=== PATIENT | female | born 1980 | race Caucasian/White ===

== ENCOUNTER 2016-12-28 12:40 | Inpatient (IN) | payer MEDICAID ==
[~2016-12-28] VITALS: Ht 160 cm; Wt 58.1 kg
[2016-12-28 13:09] VITALS: BP 115/67; PULSE 67; RESP 18; Ht 160 cm; Wt 58.1 kg
--- NOTE | 2016-12-28 13:51 | NSTRPT ---
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 TYLER 13.1, cephalic FBS 81. Strip reviewed by Dr. Stern perinatologist. Recomendation is for pt to have a ENVIRONMENTAL ENGINEERING MANAGER. Report given to Dr. Jaquez, agrees with recomendation. Pt sent to L_D for ENVIRONMENTAL ENGINEERING MANAGER. Explained to Pt plan of care . Pt states understanding. Follow up NST appointment given. Kick count instructions reviewed.1 215- pt to L_D as ordered. Electronically Signed By E-Signature: with User ID: [id number], Addendum/Amendment: Patient for ENVIRONMENTAL ENGINEERING MANAGER.Suspious NST with probable decels.
[2016-12-28] MEDS ORDERED: DEXTROSE 5%-LR 1,000 ML IV SCH (14:12)
--- NOTE | 2016-12-28 14:23 | RADRPT ---
PROCEDURE: US biophysical profile. CLINICAL INDICATION: cardiac deceleration. TECHNIQUE: Multiple sonographic images of the uterus were obtained. The images were revi ewed on a PACS workstation. COMPARISON: No prior studies are available for comparison. FINDINGS: There is a single live intrauterine gestation. heart rate is 152 beats per minute. The position is cephalic. The placenta is right lateral grade II with no abruption or previa. The TYLER is 14.0 cm. (Normal = 5-20 cm.) Breathing Movement: 2 Gross Body Movement: 2 Tone: 2 Qualitative Amniotic Fluid Volume: 2 TOTAL: 8 IMPRESSION: 1. The biophysical score is 8/8. RPTAT: QQ .Gordon Segovia MD, MD Date Time Electronically viewed and signed by .Gordon Segovia MD, on 12/28/2016 14:22 .R/
[2016-12-28] MEDS: LACTATED RINGER'S 1,000 ML IV SCH ×2 (14:32→18:04)
[2016-12-28] MEDS ORDERED: INSU100V3 IJ (19:51)
[2016-12-28] MEDS ORDERED: METF500T4 PO (19:51)
--- NOTE | 2016-12-28 20:20 | HP ---
Date/Time of Note Date/Time of Note DATE: 12/28/16 TIME: 20:12 OB - History Hx of Present Free Text/Dictation 36 yo P3 @ 35 wks, sent from NST for variable decels for oxytocin stress test; she has been courtney every 2-3 min since being observed and has not had further variables, but she does not have many accels. BPP was 05/01 patient is GDMA2 on glucophage in the am and insulin in the pm Chief Complaint: non-reactive NST Last Menstrual Period: Apr 22, 2016 Estimated Due Date: January 27, 2017 : 4 Para: 3 Care: Good Care Obstetrical Complications: Gestational Diabetes Past Family/Social History * Past Medical, Surgical, Family and Obstetric Histories reviewed from chart. Blood Type: A+ Rubella: immune RPR/VDRL: Negative GBS Status: Unknown HBsAG: Negative OB Admission Exam Vital Signs Vital Signs Vital Signs Date Time Temp Pulse Resp B/P Pulse Ox O2 Delivery O2 Flow Rate FiO2 12/28/16 13:09 98.0 67 18 115/67 Physical Exam HEENT: WNL Abdomen: WNL Cervical Dilatation: 1cm Effacement: 50% Station: -2 Membranes: Intact Accelerations: No Accelerations Decelerations: No Decelerations Varibility: Moderate Contractions on Admission: < 5 Minutes Apart Intensity: Moderate Last 72 hourBlood Glucose Bedside Glucose - 72 Hours Test 12/28/16 16:21 12/28/16 18:35 Bedside Glucose 77mg/dL (70-220) 154mg/dL (70-220) OB Assessment/Plan Other Assessment: patient was sent for observation; while she has no further decels, her FHT is not reactive she is GDMA2, and having ctx, but does not appear to be in active labor Other plan: will admit to antepartum observe FHT overnight; if not in labor, consider d/c home tomorrow BPP was 05/01 patient to have ADA diet, and her diabetic meds ordered DEONTE LOYD MD Dec 28, 2016 20:20
[2016-12-28] MEDS ORDERED: GLUCOSE GEL 15 GRAM TUBE PO PRN ×2 (21:00)
[2016-12-28] MEDS ORDERED: GLUCAGON 1 MG INJ IM PRN (21:00)
[2016-12-28] MEDS ORDERED: GLUCOSE GEL 15 GRAM TUBE BUCCAL PRN (21:00)
[2016-12-28] MEDS ORDERED: DEXTROSE 50% 50 ML SYRINGE IV PRN ×2 (21:00)
--- NOTE | 2016-12-28 21:30 | TRIAGE ---
OB Triage Datetime Report Generated by CPN: 12/28/2016 21:29 Datetime: 12/28/2016 20:48 Stage of : OB Triage Labor Evaluation Frequency: 2-7 Monitor Mode: External Duration (sec)2399: 70-160 Quality: Mild Pattern: Normal: <= 5 Contractions in 10 Minutes Resting Tone Bemiss: Relaxed Heart Rate FHR Baseline Rate: 140 Monitor Mode: External US Variability: Moderate 6-25 bpm Accelerations: 15X15 Decelerations: None Category: Category I Datetime: 12/28/2016 20:45 Stage of : OB Triage Datetime: 12/28/2016 20:00 Stage of : OB Triage Labor Evaluation Frequency: 2-8 Monitor Mode: External Duration (sec)2399: 70-140 Quality: Mild Pattern: Normal: <= 5 Contractions in 10 Minutes Resting Tone Bemiss: Relaxed Heart Rate FHR Baseline Rate: 140 Monitor Mode: External US Variability: Moderate 6-25 bpm Accelerations: 15X15 Decelerations: None Category: Category I Comments: STRIP REVIEW FROM Datetime: 12/28/2016 19:44 Temperature Route: Oral Pain Assessment Pain Scale: 4 Pain Presence: Intermittent Pain Type: Cramping Pain Location: Abdomen Pain Goal: 4 Pain Relief Measures: Comfort Measures Datetime: 12/28/2016 19:40 Vaginal Exam Dilatation (cms): 1.5 Effacement (%): 60 Station: -3 Exam By: DGS RN Vaginal Bleeding: Normal Show Cervix, Consistency: Moderate Cervix, Position: Posterior Datetime: 12/28/2016 18:32 Labor Evaluation Frequency: 4-6 Monitor Mode: External Duration (sec)2399: 50-70 Quality: Mild Pattern: Normal: <= 5 Contractions in 10 Minutes Resting Tone Bemiss: Relaxed Heart Rate FHR Baseline Rate: 140 Monitor Mode: External US FHR Baseline Changes: No Baseline Change Variability: Moderate 6-25 bpm Accelerations: 15X15 Decelerations: None Category: Category I Pain Presence: None/Denies Datetime: 12/28/2016 18:31 Bedside Blood Glucose: 154 Datetime: 12/28/2016 18:03 Labor Evaluation Frequency: 5-6 Monitor Mode: External Duration (sec)2399: 60-80 Quality: Mild Pattern: Normal: <= 5 Contractions in 10 Minutes Resting Tone Bemiss: Relaxed Heart Rate FHR Baseline Rate: 140 Monitor Mode: External US FHR Baseline Changes: No Baseline Change Variability: Moderate 6-25 bpm Accelerations: 15X15 Decelerations: None Category: Category I Pain Assessment Pain Scale: 3 Pain Presence: Intermittent Pain Type: Cramping Pain Location: Abdomen Pain Relief Measures: Comfort Measures Datetime: 12/28/2016 17:05 Labor Evaluation Frequency: 3-5 Monitor Mode: External Duration (sec)2399: 50-100 Quality: Mild Pattern: Normal: <= 5 Contractions in 10 Minutes Resting Tone Bemiss: Relaxed Heart Rate FHR Baseline Rate: 150 Monitor Mode: External US FHR Baseline Changes: No Baseline Change Variability: Moderate 6-25 bpm Accelerations: 15X15 Decelerations: None Category: Category I Pain Assessment Pain Scale: 2 Pain Presence: Intermittent Pain Type: Cramping Pain Location: Abdomen Pain Relief Measures: Comfort Measures Datetime: 12/28/2016 16:24 Bedside Blood Glucose: 77 Datetime: 12/28/2016 16:05 Labor Evaluation Frequency: 3-5 Monitor Mode: External Duration (sec)2399: 50-80 Quality: Mild Pattern: Normal: <= 5 Contractions in 10 Minutes Resting Tone Bemiss: Relaxed Monitor Mode: External US FHR Baseline Changes: No Baseline Change Variability: Moderate 6-25 bpm Accelerations: 15X15 Decelerations: None Category: Category I Pain Assessment Pain Scale: 4 Pain Presence: Intermittent Pain Type: Cramping Pain Location: Abdomen Pain Relief Measures: Comfort Measures Datetime: 12/28/2016 15:12 Assessment Type: Admission Assessment Vaginal Bleeding: None Maternal Assessment Level of Consciousness: Fully Conscious DTR's/Clonus: DTRs 2+; No Clonus Headache: Denies Blurred Vision: No Respiratory Effort: Unlabored; Regular Rhythm; Equal Expansion Breath Sounds, Left: Clear and Equal Breath Sounds, Right: Clear and Equal Nausea/Vomiting: Denies RUQ Epigastric Pain: Denies Lower Extremities Edema: None Degree: None Upper Extremities Edema: None Degree: None Facial Edema: None Fall Risk Assessment History of Falling: (0) No Secondary Diagnosis: (0) No Ambulatory Aid: (0) Bedrest/Nurse Assist IV Therapy: (0) No Gait: (0) Normal/Bedrest/Immobile Mental Status: (0) Oriented to Own Ability Fall Score: 0 Fall Risk Score Definition: No Risk: No action required Labor Evaluation Frequency: 3-4 Duration (sec)2399: 60-100 Quality: Mild Pattern: Normal: <= 5 Contractions in 10 Minutes Resting Tone Bemiss: Relaxed Heart Rate FHR Baseline Rate: 150 Variability: Moderate 6-25 bpm Accelerations: 10X10 Decelerations: Variable Category: Category II Pain Assessment Pain Scale: 4 Pain Presence: Intermittent Pain Type: Cramping Pain Location: Abdomen Membrane Status: Intact Datetime: 12/28/2016 14:38 Interventions: Side to Side; Oxygen Applied; IV Bolus; Provider Notified Accelerations: 15X15 Decelerations: Variable Category: Category II Datetime: 12/28/2016 14:33 Labor Evaluation Frequency: 6 Monitor Mode: External Duration (sec)2399: 60 Quality: Mild Pattern: Normal: <= 5 Contractions in 10 Minutes Resting Tone Bemiss: Relaxed Heart Rate FHR Baseline Rate: 145 FHR Baseline Changes: No Baseline Change Variability: Moderate 6-25 bpm Accelerations: 15X15 Decelerations: None Category: Category I Membrane Status: Intact Datetime: 12/28/2016 14:14 Headache: Denies Blurred Vision: No RUQ Epigastric Pain: Denies Facial Edema: None Labor Evaluation Frequency: 4 Monitor Mode: External Duration (sec)2399: 50 Quality: Mild Pattern: Normal: <= 5 Contractions in 10 Minutes Resting Tone Bemiss: Relaxed Heart Rate FHR Baseline Rate: 150 Variability: Moderate 6-25 bpm Accelerations: 15X15 Decelerations: Variable Category: Category II Membrane Status: Intact Datetime: 12/28/2016 13:04 Stage of : OB Triage Maternal Assessment Level of Consciousness: Fully Conscious DTR's/Clonus: DTRs 2+; No Clonus Headache: Denies Blurred Vision: No Respiratory Effort: Unlabored; Regular Rhythm; Equal Expansion Breath Sounds, Left: Clear and Equal Breath Sounds, Right: Clear and Equal Nausea/Vomiting: Denies RUQ Epigastric Pain: Denies Lower Extremities Edema: None Degree: None Upper Extremities Edema: None Degree: None Facial Edema: None Temperature Route: Axillary Fall Risk Assessment History of Falling: (0) No Secondary Diagnosis: (0) No Ambulatory Aid: (0) Bedrest/Nurse Assist IV Therapy: (0) No Gait: (0) Normal/Bedrest/Immobile Mental Status: (0) Oriented to Own Ability Fall Score: 0 Fall Risk Score Definition: No Risk: No action required Labor Evaluation Frequency: occ (Annotations: per pt) Monitor Mode: External Heart Rate FHR Baseline Rate: 140 Monitor Mode: External US Pain Presence: None/Denies Datetime: 12/28/2016 12:59 Time of Arrival: 12/28/2016 12:59 EGA: 35.4 Arrived By: Ambulatory Arrived From: Office Chief Complaint: sent from NST for non reactive strip Movement: Present Contractions: Irregular Time Contractions Began: 12/28/2016 11:00 Contractions: occ Rupture of Membranes: Denies Vaginal Bleeding: None Vaginal Discharge: Denies Recent Sexual Intercouse: Denies Abdominal Trauma: Not Applicable Patient Complaints: Other Time Provider Notified: 12/28/2016 13:14 Initial Plan: ffm/ bpp Datetime: 12/28/2016 11:20 Vaginal Exam Dilatation (cms): 1.0 Effacement (%): 50 Station: -2 Exam By: Sekou MONET RN
[2016-12-28] MEDS: INSULIN ASPART [NOVOLOG] 3 ML PEN SC SCH (23:38)
[2016-12-29] MEDS: ACCU-CHEK XX SCH ×4 (08:00→22:48)
[2016-12-29] MEDS: metFORMIN 850 MG TAB GTB SCH (09:05)
[2016-12-29] MEDS: LACTATED RINGER'S 1,000 ML IV SCH ×2 (10:49→19:24)
--- NOTE | 2016-12-29 11:26 | RADRPT ---
PROCEDURE: Limited obstetric ultrasound CLINICAL INDICATION: Pain , labor TECHNIQUE: Multiple transverse and longitudinal grayscale images of the pelvis were obtained gonzalez sabdominally and transvaginally.. COMPARISON: 12/28/2016 FINDINGS: The cervix has a length of 3.4 cm. There is a trace amount of fluid within the cervix. There is a single viable intrauterine gestation. Cardiac activity is present with 156 beats per min cammy. There is a vertex presentation. The placenta is posterior. There is no evidence for an abruption or placenta previa. RPTAT: AA IMPRESSION: Cervix length measures 3.4 cm. .Ralph Kumar MD, MD Date Time Electronically viewed and signed by .Ralph Kumar MD, on 12/29/2016 11:25 .S/
--- NOTE | 2016-12-29 19:26 | RADRPT ---
PROCEDURE: Obstetrical ultrasound. CLINICAL INDICATION: , evaluation. Pelvic pain. labor TECHNIQUE: Transabdominal sonographic images of the pelvis are obtained. COMPARISON: 12/29/2016, 12/28/2016 FINDINGS: Single intrauterine gestation. There is a cephalic presentation. Measurements were made in order to determine age. The results are as follows: BPD = 8.81 cm HC = 31.23 cm AC = 32.11 cm FL = 6.69 cm Heart rate = 148 beats per minute The placenta is posterior. There is no evidence for an abruption or placenta previa. Ovaries are not visualized. IMPRESSION: Single intrauterine gestation of approximately 35 weeks 2 days by ultrasound criteria. [place] estimated weight = 2681 g; 42 percentile for gestational age of 35 weeks 5 days. RPTAT: AADD .Nirav Horowitz MD, MD Date Time Electronically viewed and signed by .Nirav Horowitz MD, on 12/29/2016 19:26 .B/
[2016-12-29] MEDS: INSULIN ASPART [NOVOLOG] 3 ML PEN SC SCH (21:00)
[2016-12-30] MEDS: LACTATED RINGER'S 1,000 ML IV SCH ×3 (03:10→14:24)
[2016-12-30] MEDS: ACCU-CHEK XX SCH ×3 (06:20→14:00)
[2016-12-30] MEDS: metFORMIN 850 MG TAB GTB SCH (08:42)
--- NOTE | 2016-12-30 12:49 | QN ---
Documentation Comment This is a late entry of patients visit on December 29, she is a 34 years old female @35 weeks and 6/7 days GDM A2 was admitted due to heart deceleration while she was being monitored at NST unit she was sent to antepartum unit for further observation ,since admission there has been some occasional short deceleration with quick recovery . Today reviewing the heart tracing there was 2-2-1/2 minutes deceleration with recovery to base line, perinatologist notified. Plan of discharge pending perinatologist recommendation BETH OLEARY MD Dec 30, 2016 12:40
[2016-12-30] MEDS ORDERED: METF-480 PO (14:25)
--- NOTE | 2016-12-30 14:57 | DS ---
Date/Time of Note Date/Time of Note DATE: 12/30/16 TIME: 14:50 Discharge Summary Admission/Discharge Info Admit Date/Time Dec 28, 2016 at 20:48 Discharge Date/Time December 30, [id number] [id number] Final Diagnosis 35 weeks 6 days complicated with GDM heart deceleration prior to admission at the NST unit heart rate has been within normal since the admission only one occasion of 2-1/5 to 3 minutes recovered to baseline with good acceleration for gestational age recommended by the perinatologist discharged home follow-up and NST clinic 2 times per week patient's first appointment will be on January 01 Patient Condition: Good Consults Perinatologist Procedures Observation Hx of Present Illness 35 weeks 6 days complicated with gestational diabetes insulin- dependent Hospital Course Satisfactory Home Meds Reported Medications Metformin* (Glucophage*) 850 Mg Tablet, 850 MG PO WITH BREAKFAST, #30 TAB 12/30/16 Metformin* (Glucophage*) 850 Mg Tablet, 850 MG PO WITH BREAKFAST, #30 TAB 12/30/16 Insulin Regular, Human (Humulin R) 100 Unit/1 Ml Vial, 6 UNIT IJ QHS, VIAL 12/28/16 Discontinued Reported Medications Metformin* (Glucophage*) 500 Mg Tab, 500 MG PO WITH BREAKFAST, #30 TAB 12/28/16 Follow-up Plan Patient will continue insulin injections as before, a prescription of metformin 850mg given to the patient recommended appointment on January 01 at NST clinic Pending Labs Laboratory Tests Test 12/29/16 15:28 12/29/16 22:47 12/30/16 06:20 12/30/16 08:40 Bedside Glucose 119mg/dL (70-220) 104mg/dL (70-220) 69mg/dL (70-220) 133mg/dL (70-220) Test 12/30/16 10:41 Bedside Glucose 115mg/dL (70-220) BETH OLEARY MD Dec 30, 2016 14:57
[2016-12-31] MEDS ORDERED: NPH,100V SQ (17:50)
== END 2016-12-30 15:05 | disposition home or self-care (01) | DRG 781 ==
LOC: OBT 12:40 → L-D 12:41 → OBG 20:48 → OBT 20:48 → OBG 21:12
PROVIDERS: ADMIT Obstetrics & Gynecology; ATTEND Obstetrics & Gynecology
DX: O24.419 Gestational diabetes mellitus in pregnancy, unspecified control (principal); O09.513 Supervision of elderly primigravida, third trimester; Z3A.35 35 weeks gestation of pregnancy
CPT/HCPCS: 76816; 76817; 76818; 82962; 96360; 96361; G0463; J1815; J7120; J7121

== ENCOUNTER 2016-12-31 17:30 | Inpatient (IN) | payer MEDICAID ==
[~2016-12-31] VITALS: Ht 160 cm; Wt 58.6 kg
[~2016-12-31 17:30] MED LIST: INSU100V3 IJ; METF-480 PO
[2016-12-31] MEDS ORDERED: LACTATED RINGER'S 1,000 ML IV SCH (17:41)
[2016-12-31] MEDS ORDERED: DEXTROSE 5%-LR 1,000 ML IV SCH (17:41)
[2016-12-31 17:45] VITALS: Ht 160 cm; Wt 58.6 kg
[2016-12-31 17:46] VITALS: BP 125/83; PULSE 67; RESP 16
[2016-12-31] MEDS ORDERED: NPH,100V SQ (17:50)
[2016-12-31] MEDS ORDERED: OXYTOCIN 30 UNITS/LR 500 ML IV PRN (18:00)
[2016-12-31] MEDS ORDERED: BUTORPHANOL 2 MG INJ IV PRN (18:00)
[2016-12-31] MEDS ORDERED: MISOPROSTOL 200 MCG TAB PR PRN (18:00)
[2016-12-31] MEDS ORDERED: CARBOPROST 250 MCG INJ IM PRN (18:00)
[2016-12-31] MEDS ORDERED: AMPICILLIN 2 GM/NS (PMX) 100 ML IV ONE (18:00)
[2016-12-31] MEDS ORDERED: METHYLERGONOVINE 0.2 MG INJ IM PRN (18:00)
[2016-12-31] MEDS ORDERED: LIDOCAINE 1% (MPF) 30 ML INJ INJ PRN (18:00)
[2016-12-31] MEDS ORDERED: OXYTOCIN 30 UNITS/LR 500 ML IV SCH ×2 (18:00)
[2016-12-31] MEDS ORDERED: IBUPROFEN 600 MG TAB PO PRN (18:00)
[2016-12-31 18:05] LABS: ADD SCAN DIFF NO
[2016-12-31 18:08] LABS: BASOPHILS % 0.2 % (0.0-2.0); EOSINOPHILS # 0.1 10^3/ul (0.0-0.5); EOSINOPHILS % 1.6 % (0.0-7.0); HEMATOCRIT 37.3 % (37.0-47.0); HEMOGLOBIN 12.5 g/dl (12.0-16.0); LYMPHOCYTES % 23.9 % (15.0-51.0); MEAN CORPUSCULAR HEMOGLOBIN 32.2 pg (29.0-33.0); MEAN CORPUSCULAR HGB CONC 33.5 g/dl (32.0-37.0); MEAN CORPUSCULAR VOLUME 96.1 fl (82.0-101.0); MEAN PLATELET VOLUME 11.3 fl (7.4-10.4); MONOCYTE # 0.6 10^3/ul (0.3-0.9); NEUTROPHIL # 5.5 10^3/ul (1.6-7.5); NEUTROPHILS % 66.7 % (39.0-77.0); PLATELET COUNT 197 10^3/UL (140-415); RED BLOOD COUNT 3.88 10^6/ul (4.20-5.40); RED CELL DISTRIBUTION WIDTH 11.6 % (11.5-14.5); WHITE BLOOD COUNT 8.2 10^3/ul (4.8-10.8)
[2016-12-31] MEDS ORDERED: AMPICILLIN 2 GM/NS (PMX) 100 ML ONE (18:08)
[2016-12-31 18:15] LABS: INR 0.91; PARTIAL THROMBOPLASTIN TIME 26.8 Sec (25.0-35.0); PROTIME 12.2 Sec (12.2-14.2)
[2016-12-31] MEDS: LACTATED RINGER'S 1,000 ML IV SCH (18:17)
[2016-12-31] MEDS ORDERED: LACTATED RINGER'S 1,000 ML IV PRN (20:00)
[2016-12-31] MEDS: AMPICILLIN 1 GM/NS (PMX) 50 ML IV SCH (21:48)
[2017-01-01] MEDS: LACTATED RINGER'S 1,000 ML IV SCH (02:04)
[2017-01-01] MEDS: AMPICILLIN 1 GM/NS (PMX) 50 ML IV SCH (02:04)
--- NOTE | 2017-01-01 03:49 | HP ---
Date/Time of Note Date/Time of Note DATE: 01/01/17 TIME: 03:40 OB - History Hx of Present Free Text/Dictation Laborist Note. with IUP at 36 weeks who was admitted for PPROM. she was treated with ampicillin and allowed to progress in labor naturally. she progressed to 10 cm and then s/p . Care: Good Care Ultrasounds: Normal mid trimester US Obstetrical Complications: Other (PPROM) Medical Complications: None Past Family/Social History * Past Medical, Surgical, Family and Obstetric Histories reviewed from chart. HBsAG: Unknown OB Admission Exam Vital Signs Vital Signs Vital Signs Date Time Temp Pulse Resp B/P Pulse Ox O2 Delivery O2 Flow Rate FiO2 12/31/16 17:46 98.4 67 16 125/83 Physical Exam HEENT: WNL Heart: Rhythm Normal Lungs: Clear, Equal Abdomen: WNL Extremities: Normal Reflexes: Normal Cervical Dilatation: 10cm Effacement: 100% Station: +3 Membranes: Ruptured Amniotic Fluid: Thin Meconium Last 72 hourBlood Glucose Bedside Glucose - 72 Hours Test 12/31/16 21:39 01/01/17 01:30 Bedside Glucose 81mg/dL (70-220) 91mg/dL (70-220) Last 72 hours Lab Results CBC & BMP 12/31/16 17:35 OB Assessment/Plan Reason for admission: other (PPROM at 36 weeks) Other Assessment: GDM, on insulin and Metformin Plan: Expectant Management EBONIE HANEY MD Jan 01, 2017 03:49
--- NOTE | 2017-01-01 03:53 | LDN ---
Date/Time of Note Date/Time of Note DATE: 01/01/17 TIME: 03:49 Delivery Summary with IUP at 36 weeks with PPROM progressed to 10 cm. s/p of viable female infant. Placenta Delivered: Spontaneously Meconium: Light Episiotomy: No Perineal laceration: 1 Laceration repair: 3-0 Vicryl and local lidocaine was used to repair the first degree perineal laceration. Anesthesia type: Local Estimated blood loss: 300 Sponge & Needle done & correct: Yes All needle counts correct: Yes Any foreign bodies felt in the: No Problems: Delivery Information Sex Sex: female Apgars 1 Minute: 8 5 Minute: 9 Suctioning Nose & mouth suctioned at monica: No Delee suction performed: No Umbilical Cord Umbilical cord with: 3 Vessels Cord presentations: nuchal cord Nuchal cord present X: 1 Cord Blood was obtained: Yes Mother & Baby Disposition Disposition delayed cord clamping for 2 minutes done Mom & Baby to Maternity; Good: Yes EBONIE HANEY MD Jan 01, 2017 03:53
[2017-01-01] MEDS ORDERED: DIBUCAINE 1% 30 GM OINT PR PRN (04:00)
[2017-01-01] MEDS ORDERED: MISOPROSTOL 200 MCG TAB PR PRN (04:00)
[2017-01-01] MEDS ORDERED: DIPHENHYDRAMINE 50 MG INJ IV PRN (04:00)
[2017-01-01] MEDS ORDERED: WITCH HAZEL/GLYCERIN PAD PR PRN (04:00)
[2017-01-01] MEDS ORDERED: ACETAMINOPHEN/CODEINE #3 TAB PO PRN ×2 (04:00)
[2017-01-01] MEDS ORDERED: LANOLIN 7 GM TUBE TOP PRN (04:00)
[2017-01-01] MEDS ORDERED: CARBOPROST 250 MCG INJ IM PRN (04:00)
[2017-01-01] MEDS ORDERED: MAGNESIUM HYDROXIDE 30ML CUP PO PRN (04:00)
[2017-01-01] MEDS ORDERED: DIPHENHYDRAMINE 25 MG CAP PO PRN (04:00)
[2017-01-01] MEDS ORDERED: BENZOCAINE 20% 56 ML SPRAY TOP PRN (04:00)
[2017-01-01] MEDS ORDERED: NA PHOSPHATE/BIPHOS 133 ML ENEMA PR PRN (04:00)
[2017-01-01] MEDS ORDERED: OXYTOCIN 30 UNITS/LR 500 ML IV PRN (04:00)
[2017-01-01] MEDS ORDERED: ONDANSETRON 4 MG TAB PO PRN (04:00)
[2017-01-01] MEDS ORDERED: SENNA/DOCUSATE NA (8.6MG/50MG) TAB PO PRN (04:00)
[2017-01-01] MEDS ORDERED: ONDANSETRON 4 MG INJ IV PRN (04:00)
[2017-01-01 05:00] VITALS: BP 125/76; PULSE 98; RESP 19
[2017-01-01] MEDS: LACTATED RINGER'S 1,000 ML IV* SCH ×2 (05:39→09:21)
[2017-01-01] MEDS: IBUPROFEN 600 MG TAB PO SCH ×3 (05:45→18:23)
[2017-01-01 06:00] VITALS: BP 123/83; PULSE 65; RESP 19
[2017-01-01 08:00] VITALS: BP 135/70; PULSE 56; RESP 18
[2017-01-01] MEDS: ACCU-CHEK XX SCH ×4 (08:16→20:05)
[2017-01-01] MEDS ORDERED: DEXTROSE 50% 50 ML SYRINGE IV PRN ×2 (09:30)
[2017-01-01] MEDS ORDERED: GLUCOSE GEL 15 GRAM TUBE PO PRN ×2 (09:30)
[2017-01-01] MEDS ORDERED: GLUCOSE GEL 15 GRAM TUBE BUCCAL PRN (09:30)
[2017-01-01] MEDS ORDERED: GLUCAGON 1 MG INJ IM PRN (09:30)
[2017-01-01] MEDS: metFORMIN 500 MG TAB PO SCH ×2 (09:51→18:29)
[2017-01-01] MEDS: SENNA/DOCUSATE NA (8.6MG/50MG) TAB PO SCH ×2 (09:51→20:19)
[2017-01-01 16:00] VITALS: BP 115/76; PULSE 59; RESP 18
[2017-01-01 20:00] VITALS: BP 128/80; PULSE 60; RESP 18
--- NOTE | 2017-01-01 21:39 | NSTRPT ---
NST Information Datetime Report Generated by CPN: 01/01/2017 21:39 Datetime: 12/28/2016 09:03 Test Evaluation Comments: PT TO U/S. TYLER 13.1, cephalic, BPP 8/8 FBS 81. Strip reviewed by Dr. Stern perinatologist. SVE ordered by . BERTRAM done at 1120, pt is /2. Recomendation is for pt to have a COMMERCIAL ASSISTANT. Report given to Dr. Jaquez, agrees with recomendation . Pt sent to L_D for COMMERCIAL ASSISTANT. Explained to Pt plan of care. Pt states understanding. Follow up NST appoi ntment given. Kick count instructions reviewed.1215- pt to L_D as ordered. Datetime: 12/18/2016 09:12 Electronically Signed By E-Signature: with User ID: [id number]
[2017-01-01 22:00] VITALS: BP 130/82; PULSE 72; RESP 18
[2017-01-02 04:05] VITALS: BP 100/60
[2017-01-02] MEDS: ACCU-CHEK XX SCH ×3 (07:45→15:00)
[2017-01-02 08:00] VITALS: BP 117/81; PULSE 58; RESP 16
[2017-01-02] MEDS: IBUPROFEN 600 MG TAB PO SCH ×4 (08:00→18:00)
[2017-01-02] MEDS: metFORMIN 500 MG TAB PO SCH ×2 (09:04→18:42)
[2017-01-02] MEDS: SENNA/DOCUSATE NA (8.6MG/50MG) TAB PO SCH ×2 (09:04→21:00)
[2017-01-02 09:57] LABS: ADD SCAN DIFF NO
[2017-01-02] MEDS: LACTATED RINGER'S 1,000 ML IV* SCH ×2 (10:00→10:01)
--- NOTE | 2017-01-02 10:00 | PN ---
Date/Time of Note Date/Time of Note DATE: 01/02/17 TIME: 09:59 OB Subjective Subjective Subjective Laboratory Tests Test 01/01/17 10:28 01/01/17 14:26 01/01/17 20:23 01/02/17 07:53 Bedside Glucose 108mg/dL 108mg/dL 125mg/dL 73mg/dL Current Medications Medications (Trade) Dose Ordered Sig/Jessica Route PRN Reason Start Time Stop Time Status Last Admin Dose Admin Lactated Ringer's 1,000 ml @ 125 mls/hr Q8H IV 12/31/16 17:41 01/01/17 03:39 DC 01/01/17 02:04 Lactated Ringer's 1,000 ml @ 125 mls/hr Q8H IV 12/31/16 17:41 01/01/17 03:39 DC 12/31/16 17:41 Dextrose/Lactated Ringer's 1,000 ml @ 125 mls/hr Q8H IV 12/31/16 17:41 01/01/17 03:40 DC Ampicillin 100 ml @ 100 mls/hr ONCE ONCE IV 12/31/16 18:00 12/31/16 18:59 DC 12/31/16 18:17 Ampicillin (Ampicillin 1 Gm/ NS (Pmx)) 50 ml @ 100 mls/hr Q4H IV 12/31/16 22:00 01/01/17 03:40 DC 01/01/17 02:04 Butorphanol Tartrate (Stadol) 2 mg Q2H PRN IV PAIN 12/31/16 18:00 01/01/17 03:40 DC 12/31/16 23:56 Lidocaine 30 ml 30 ml ONCE PRN INJ EPISIOTOMY/TEARING 12/31/16 18:00 01/01/17 03:40 DC Oxytocin/Lactated Ringer's 500 ml @ 125 mls/hr ONCE -MAY REPEAT X1 IV 12/31/16 18:00 01/01/17 03:40 DC 01/01/17 03:38 Oxytocin/Lactated Ringer's 500 ml @ 125 mls/hr ONCE IV 12/31/16 18:00 01/01/17 03:40 DC 01/01/17 03:19 Ibuprofen 600 mg 600 mg ONCE PRN PO Mild Pain (Pain Score 1-3) 12/31/16 18:00 01/01/17 03:40 DC Lactated Ringer's 1,000 ml @ 2,000 mls/hr Q30M PRN IV PRE-EPIDURAL BOLUS 12/31/16 20:00 01/01/17 03:40 DC Oxytocin/Lactated Ringer's 500 ml @ 0 mls/hr ONCE PRN IV For Hemorrhage Management 12/31/16 18:00 01/01/17 03:40 DC Methylergonovine Maleate (Methergine) 0.2 mg ONCE PRN IM VAGINAL BLEEDING 12/31/16 18:00 01/01/17 03:40 DC Carboprost Tromethamine (Hemabate) 250 mcg ONCE PRN IM VAGINAL BLEEDING 12/31/16 18:00 01/01/17 03:40 DC Misoprostol 1000 mcg 1,000 mcg ONCE PRN MI VAGINAL BLEEDING 12/31/16 18:00 01/01/17 03:40 DC Ampicillin 100 ml @ ud STK-MED ONCE .ROUTE 12/31/16 18:08 12/31/16 18:09 DC Lactated Ringer's (Lr) 1,000 ml @ 125 mls/hr Q8H IV* 01/01/17 03:33 01/01/17 09:21 Ibuprofen (Motrin) 600 mg Q6 PO 01/01/17 06:00 01/01/17 18:23 Acetaminophen/ Codeine Phosphate (Tylenol No.3) 1 tab Q4H PRN PO PAIN LEVEL 1-5 01/01/17 04:00 Acetaminophen/ Codeine Phosphate (Tylenol No.3) 2 tab Q4H PRN PO PAIN LEVEL 6-10 01/01/17 04:00 Ondansetron HCl (Zofran Inj) 4 mg Q6H PRN IV NAUSEA AND/OR VOMITING 01/01/17 04:00 Ondansetron HCl (Zofran Tab) 4 mg Q6H PRN PO NAUSEA AND/OR VOMITING 01/01/17 04:00 Diphenhydramine HCl (Benadryl) 25 mg Q6H PRN PO PRURITUS 01/01/17 04:00 Diphenhydramine HCl (Benadryl) 25 mg Q6H PRN IV PRURITUS 01/01/17 04:00 Senna/Docusate Sodium (Senokot-S) 1 tab BID PO 01/01/17 09:00 01/02/17 09:04 Senna/Docusate Sodium (Senokot-S) 1 tab BID PRN PO CONSTIPATION 01/01/17 04:00 Magnesium Hydroxide (Milk Of Mag) 30 ml Q12H PRN PO CONSTIPATION 01/01/17 04:00 Sodium Biphosphate/ Sodium Phosphate (Fleet Enema) 133 ml DAILY PRN MI CONSTIPATION 01/01/17 04:00 Witch Sherita/ Glycerin (Tucks Pads) 1 pad BEDSIDE MEDICATION PRN MI HEMORRHOID/EPISIOTMY PAIN 01/01/17 04:00 01/01/17 05:45 Benzocaine (Dermoplast [place]) 1 spray BEDSIDE MEDICATION PRN TOP HEMORRHOID/EPISIOTMY PAIN 01/01/17 04:00 01/01/17 05:46 Dibucaine (Nupercainal) 1 applic BEDSIDE MEDICATION PRN MI HEMORRHOID/EPISIOTMY PAIN 01/01/17 04:00 Lanolin ([id number]) 1 applic BEDSIDE MEDICATION PRN TOP BEDSIDE FOR MOHINI TO NIPPLES 01/01/17 04:00 01/01/17 05:46 Measles/Mumps/ Rubella Vaccine Live (Mmr Ii Vaccine) 0.5 ml ONCE ONCE SC* 01/03/17 09:00 01/03/17 09:01 Diphtheria/ Tetanus/Acell Pertussis (Adacel) 0.5 ml ONCE ONCE IM* 01/03/17 09:00 01/03/17 09:01 Varicella Virus Vaccine Live 1350 unit 1,350 unit ONCE ONCE SC* 01/03/17 09:00 01/03/17 09:01 Oxytocin/Lactated Ringer's 500 ml @ 0 mls/hr ONCE PRN IV For Hemorrhage Management 01/01/17 04:00 Carboprost Tromethamine (Hemabate) 250 mcg ONCE PRN IM VAGINAL BLEEDING 01/01/17 04:00 Misoprostol (Cytotec) 1,000 mcg ONCE PRN MI VAGINAL BLEEDING 01/01/17 04:00 Diagnostic Test (Pha) (Accu-Chek) 1 ea FBSPP XX 01/01/17 06:00 01/02/17 07:45 Metformin HCl (Glucophage) 500 mg WITH DINNER PO 01/01/17 18:05 01/01/17 18:29 Metformin HCl (Glucophage) 500 mg WITH BREAKFAST PO 01/01/17 09:23 01/02/17 09:04 Miscellaneous Information 1 ea NOTE XX 01/01/17 09:30 Glucose (Glutose) 15 gm Q15M PRN PO DECREASED GLUCOSE 01/01/17 09:30 Glucose (Glutose) 22.5 gm Q15M PRN PO DECREASED GLUCOSE 01/01/17 09:30 Dextrose (D50w Syringe) 25 ml Q15M PRN IV DECREASED GLUCOSE 01/01/17 09:30 Dextrose (D50w Syringe) 50 ml Q15M PRN IV DECREASED GLUCOSE 01/01/17 09:30 Glucagon (Glucagen) 1 mg Q15M PRN IM DECREASED GLUCOSE 01/01/17 09:30 Glucose (Glutose) 15 gm Q15M PRN BUCCAL DECREASED GLUCOSE 01/01/17 09:30 day 1 Vital signs stable ,afebrile abdomen soft uterus firm lochia normal extremity normal. BETH OLEARY MD Jan 02, 2017 10:00
[2017-01-02 10:02] LABS: BASOPHILS % 0.5 % (0.0-2.0); EOSINOPHILS # 0.2 10^3/ul (0.0-0.5); EOSINOPHILS % 2.2 % (0.0-7.0); HEMATOCRIT 32.2 % (37.0-47.0); HEMOGLOBIN 10.7 g/dl (12.0-16.0); LYMPHOCYTES # 2.5 10^3/ul (0.8-2.9); LYMPHOCYTES % 28.9 % (15.0-51.0); MEAN CORPUSCULAR HEMOGLOBIN 32.1 pg (29.0-33.0); MEAN CORPUSCULAR HGB CONC 33.2 g/dl (32.0-37.0); MEAN CORPUSCULAR VOLUME 96.7 fl (82.0-101.0); MEAN PLATELET VOLUME 11.3 fl (7.4-10.4); MONOCYTE # 0.6 10^3/ul (0.3-0.9); MONOCYTES % 6.4 % (0.0-11.0); NEUTROPHIL # 5.3 10^3/ul (1.6-7.5); NEUTROPHILS % 61.3 % (39.0-77.0); PLATELET COUNT 164 10^3/UL (140-415); RED BLOOD COUNT 3.33 10^6/ul (4.20-5.40); RED CELL DISTRIBUTION WIDTH 11.9 % (11.5-14.5); WHITE BLOOD COUNT 8.6 10^3/ul (4.8-10.8)
[2017-01-02 15:39] VITALS: BP 111/76; PULSE 68; RESP 18
[2017-01-02 20:00] VITALS: BP 126/79; PULSE 59; RESP 20
[2017-01-03 04:46] VITALS: BP 129/82; PULSE 57; RESP 20
[2017-01-03] MEDS: IBUPROFEN 600 MG TAB PO SCH ×3 (05:23→12:25)
[2017-01-03] MEDS: ACCU-CHEK XX SCH ×3 (07:30→10:47)
[2017-01-03 08:00] VITALS: BP 110/75; PULSE 148; RESP 18
[2017-01-03] MEDS: metFORMIN 500 MG TAB PO SCH (08:34)
--- NOTE | 2017-01-03 08:52 | PD.PPDC ---
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
[2017-01-03] MEDS ORDERED: DIPHTH/TET/ACEL PERTUSS (ADULT) 0.5 ML VIAL IM* ONE (09:00)
[2017-01-03] MEDS: SENNA/DOCUSATE NA (8.6MG/50MG) TAB PO SCH (09:00)
[2017-01-03] MEDS ORDERED: VARICELLA VACCINE LIVE/PF 1,350 UNIT/0.5 ML ML SC* ONE (09:00)
[2017-01-03] MEDS ORDERED: MEASLES,MUMPS,RUBELLA VACCINE INJ SC* ONE (09:00)
--- NOTE | 2017-01-03 09:11 | DS ---
Date/Time of Note Date/Time of Note DATE: 01/03/17 TIME: 09:07 Discharge Summary Admission/Discharge Info Admit Date/Time Dec 31, 2016 at 17:31 Discharge Date/Time January 03, 2017 at 0905 Final Diagnosis Status post post normal vaginal delivery Patient Condition: Good Procedures Normal vaginal delivery Hx of Present Illness Term gestational diabetes had normal spontaneous vaginal delivery. Hospital Course Satisfactory, patient blood sugar fasting 73 2 hours postprandial 150 the last fasting blood sugar 79 discharged home with prescription metformin 500 mg at breakfast and dinnertime Home Meds Reported Medications Insulin NPH Human Isophane (Humulin N) 100 Unit/1 Ml Vial, 100 UNIT SQ QPM, VIAL 12/31/16 Metformin* (Glucophage*) 850 Mg Tablet, 850 MG PO WITH BREAKFAST, #30 TAB 12/30/16 Metformin* (Glucophage*) 850 Mg Tablet, 850 MG PO WITH BREAKFAST, #30 TAB 12/30/16 Insulin Regular, Human (Humulin R) 100 Unit/1 Ml Vial, 6 UNIT IJ QHS, VIAL 12/28/16 Discontinued Reported Medications Metformin* (Glucophage*) 500 Mg Tab, 500 MG PO WITH BREAKFAST, #30 TAB 12/28/16 Pending Labs Laboratory Tests Test 01/02/17 09:16 01/02/17 10:55 01/02/17 15:08 01/02/17 19:57 White Blood Count 8.610^3/ul (4.8-10.8) Red Blood Count 3.3310^6/ul (4.20-5.40) Hemoglobin 10.7g/dl (12.0-16.0) Hematocrit 32.2% (37.0-47.0) Mean Corpuscular Volume 96.7fl (82.0-101.0) Mean Corpuscular Hemoglobin 32.1pg (29.0-33.0) Mean Corpuscular Hemoglobin Concent 33.2g/dl (32.0-37.0) Red Cell Distribution Width 11.9% (11.5-14.5) Platelet Count 85709^3/UL (140-415) Mean Platelet Volume 11.3fl (7.4-10.4) Neutrophils % 61.3% (39.0-77.0) Lymphocytes % 28.9% (15.0-51.0) Monocytes % 6.4% (0.0-11.0) Eosinophils % 2.2% (0.0-7.0) Basophils % 0.5% (0.0-2.0) Nucleated Red Blood Cells % 0.0/100WBC (0.0-0.0) Neutrophils # 5.310^3/ul (1.6-7.5) Lymphocytes # 2.510^3/ul (0.8-2.9) Monocytes # 0.610^3/ul (0.3-0.9) Eosinophils # 0.210^3/ul (0.0-0.5) Basophils # 0.010^3/ul (0.0-0.1) Nucleated Red Blood Cells # 0.010^3/ul (0.0-0.0) Bedside Glucose 153mg/dL (70-220) 144mg/dL (70-220) 124mg/dL (70-220) Test 01/03/17 07:58 Bedside Glucose 79mg/dL (70-220) BETH OLEARY MD Jan 03, 2017 09:11
== END 2017-01-03 15:20 | disposition home or self-care (01) | DRG 775 ==
LOC: OBT 17:30 → L-D 17:31 → PP1 01-01 05:03
PROVIDERS: ADMIT Obstetrics & Gynecology; ATTEND Obstetrics & Gynecology
PROC: 10E0XZZ Delivery of Products of Conception, External Approach (ICD-10-PCS; principal; 2017-01-01)
PROC: 0HQ9XZZ Repair Perineum Skin, External Approach (ICD-10-PCS; 2017-01-01)
DX: O42.913 Preterm premature rupture of membranes, unspecified as to length of time between rupture and onset of labor, third trimester (principal); O24.424 Gestational diabetes mellitus in childbirth, insulin controlled; O70.0 First degree perineal laceration during delivery; O69.1XX0 Labor and delivery complicated by cord around neck, with compression, not applicable or unspecified; Z3A.36 36 weeks gestation of pregnancy; Z37.0 Single live birth
CPT/HCPCS: 82947; 82962; 84112; 85025; 85610; 85730; 86592; 86900; 86901; 90715; 90716; 99464; G0463; J0290; J2590; J7120; J7121

== ENCOUNTER 2018-09-30 09:16 | Inpatient (IN) | payer MEDICAID ==
[~2018-09-30] VITALS: Ht 160 cm; Wt 69.3 kg
[2018-09-30 09:30] VITALS: Ht 160 cm; Wt 69.3 kg
[2018-09-30 09:31] VITALS: BP 130/79; PULSE 74; RESP 17
[2018-09-30] MEDS ORDERED: INSU100C SQ (09:37)
[2018-09-30] MEDS ORDERED: NPH,100I5 SQ (09:37)
[2018-09-30] MEDS ORDERED: AMPICILLIN 2 GM/NS (PMX) 100 ML IV ONE (10:00)
[2018-09-30] MEDS ORDERED: LIDOCAINE 1% (MPF) 30 ML INJ INJ PRN (10:00)
[2018-09-30] MEDS ORDERED: CARBOPROST 250 MCG INJ IM PRN (10:00)
[2018-09-30] MEDS ORDERED: OXYTOCIN 30 UNITS/LR 500 ML IV SCH ×2 (10:00)
[2018-09-30] MEDS ORDERED: MISOPROSTOL 200 MCG TAB PR PRN (10:00)
[2018-09-30] MEDS ORDERED: OXYTOCIN 30 UNITS/LR 500 ML IV PRN (10:00)
[2018-09-30] MEDS ORDERED: BUTORPHANOL 2 MG INJ IV PRN (10:00)
[2018-09-30] MEDS ORDERED: METHYLERGONOVINE 0.2 MG INJ IM PRN (10:00)
--- NOTE | 2018-09-30 10:02 | TRIAGE ---
OB Triage Datetime Report Generated by CPN: 09/30/2018 10:02 Datetime: 09/30/2018 09:59 Labor Evaluation Frequency: 2-5 Monitor Mode: External Duration (sec)2399: 60-90 Quality: Mild Pattern: Normal: <= 5 Contractions in 10 Minutes Resting Tone [place]: Relaxed Heart Rate FHR Baseline Rate: 135 Variability: Moderate 6-25 bpm Decelerations: None Category: Category I Datetime: 09/30/2018 09:33 Vaginal Exam Dilatation (cms): 1.5 Effacement (%): 50 Station: -3 Exam By: [email or web address] Datetime: 09/30/2018 09:29 Assessment Type: Triage Maternal Assessment Level of Consciousness: Fully Conscious DTR's/Clonus: DTRs 2+; No Clonus Headache: Denies Blurred Vision: No Respiratory Effort: Unlabored; Regular Rhythm; Equal Expansion Breath Sounds, Left: Clear and Equal Breath Sounds, Right: Clear and Equal Nausea/Vomiting: Denies RUQ Epigastric Pain: Denies Lower Extremities Edema: None Degree: None Upper Extremities Edema: None Degree: None Facial Edema: None Fall Risk Assessment History of Falling: (0) No Secondary Diagnosis: (0) No Ambulatory Aid: (0) Bedrest/Nurse Assist IV Therapy: (0) No Gait: (0) Normal/Bedrest/Immobile Mental Status: (0) Oriented to Own Ability Fall Score: 0 Fall Risk Score Definition: No Risk: No action required Datetime: 09/30/2018 09:28 Time of Arrival: 09/30/2018 09:12 EGA: 37.3 Arrived By: Ambulatory Arrived From: Home Chief Complaint: [id number], clear fluid Movement: Present Contractions: Irregular Rupture of Membranes: Ruptured Vaginal Discharge: Denies Recent Sexual Intercouse: Denies Abdominal Trauma: Not Applicable Patient Complaints: Other Time Provider Notified: 09/30/2018 09:49 Provider Notified: irina Initial Plan: r/o srom
[2018-09-30] MEDS: LACTATED RINGER'S 1,000 ML IV SCH ×3 (10:29→23:47)
[2018-09-30] MEDS ORDERED: AMPICILLIN 1 GM/NS (PMX) 50 ML IV SCH (14:00)
[2018-09-30] MEDS ORDERED: DEXTROSE 5%-LR 1,000 ML IV PRN (14:00)
[2018-09-30] MEDS ORDERED: AMPICILLIN 2 GM/NS (PMX) 100 ML ONE (22:46)
[2018-09-30] MEDS ORDERED: AMPICILLIN 2 GM/NS (PMX) 100 ML IVPB ONE (23:00)
--- NOTE | 2018-09-30 23:23 | PREAC ---
Date/Time of Note Date/Time of Note DATE: 09/30/18 TIME: 23:21 Anesthesia Eval and Record Evaluation Time Pre-Procedure Interview DATE: 09/30/18 TIME: 23:21 Age 38 Sex female NPO: 8 hrs Preoperative diagnosis iup at 37 weeks, srom Planned procedure labor epidural Past Medical History Past Medical History: None : Gestational diabetes Surgery & Anesthesia Issues No known issue Meds Anticoagulation: No Beta Xiang within 24 hr: No Reason Beta Xiang not given: Pt. not on B-Xiang Reported Medications NPH, Human Insulin Isophane (Humulin N Kwikpen) 100 Unit/1 Ml Insuln.pen, 1 UNIT SQ, EA 09/30/18 Insulin Lispro (Humalog) 100 Unit/1 Ml Cartridge, 100 UNIT SQ, EA 09/30/18 NPH, Human Insulin Isophane (Humulin N Kwikpen) 100 Unit/1 Ml Insuln.pen, 1 UNIT SQ, EA 09/30/18 Insulin Lispro (Humalog) 100 Unit/1 Ml Cartridge, 100 UNIT SQ, EA 09/30/18 Current Medications Lactated Ringer's 1,000 ml @ 125 mls/hr Q8H IV Last administered on 09/30/18at 18:01; Admin Dose 125 MLS/HR; Start 09/30/18 at 09:41 Butorphanol Tartrate (Stadol) 2 mg Q2H PRN IV PAIN; Start 09/30/18 at 10:00 Lidocaine (Xylocaine 1% (Mpf)) 30 ml ONCE PRN INJ EPISIOTOMY; Start 09/30/18 at 10:00 Oxytocin/Lactated Ringer's 500 ml @ 500 mls/hr ONCE POST IV ; Start 09/30 at 10:00 Oxytocin/Lactated Ringer's 500 ml @ 125 mls/hr POST IV ; Start 09/30/18 at 10:00 Oxytocin/Lactated Ringer's 500 ml @ 0 mls/hr ONCE PRN IV VAGINAL BLEEDING; Start 09/30/18 at 10:00 Methylergonovine Maleate (Methergine) 0.2 mg ONCE PRN IM VAGINAL BLEEDING; Start 09/30/18 at 10:00 Carboprost Tromethamine (Hemabate) 250 mcg ONCE PRN IM VAGINAL BLEEDING; Start 09/30/18 at 10:00 Misoprostol (Cytotec) 1,000 mcg ONCE PRN [place] VAGINAL BLEEDING; Start 09/30/18 at 10:00 Dextrose/Lactated Ringer's 1,000 ml @ 125 mls/hr Q8H PRN IV DECREASED GLUCOSE; Start 09/30/18 at 14:00 Ampicillin 100 ml @ 100 mls/hr ONCE ONCE IVPB ; Start 09/30/18 at 23:00; Stop 09/30/18 at 23:59 Ampicillin 50 ml @ 100 mls/hr Q4 IVPB ; Start 10/01/18 at 01:00 Meds reviewed: Yes Allergies Coded Allergies: No Known Allergy (Unverified , 12/28/16) Allergies Reviewed: Yes Labs/Studies Labs Reviewed: Reviewed by anesthesiologist Result Diagram: 09/30/18 1025 09/30/18 1025 Laboratory Tests 09/30/18 10:25 Blood Bank Test 09/30/18 10:25 Antibody Screen NEGATIVE Blood Type A POSITIVE Rh Immune Globulin Candidate NO test: Negative Pre-procedure Exam Last vitals Vital Signs Date Temp Pulse Resp B/P (MAP) Pulse Ox O2 O2 Flow FiO2 Time Delivery Rate 09/30/18 98.0 74 17 130/79 09:31 (96) Airway: Adequate mouth opening, Adequate thyromental dist Mallampati: Mallampati I Teeth: Normal Lung: Normal Heart: Normal ASA Physical Status ASA physical status: 2 Emergency: None Planned Anesthetic Neuraxial: Epidural Planned Pain Management Parenteral pain med Pre-operative Attestations Prior to commencing anesthesia and surgery, the patient was re-evaluated, there was verification of: *The patient's identity *The results of appropriate recent lab work and preoperative vital signs *The above evaluation not changing prior to induction *Anesthetic plan, risk benefits, alternative and complications discussed with patient/family; questions answered; patient/family understands, accepts and wishes to proceed. MARY CROFT Sep 30, 2018 23:23
[2018-09-30] MEDS ORDERED: FENTAnyl 2MCG/ML-ROPIV 0.2% 100 ML ONE (23:39)
[2018-10-01] MEDS ORDERED: FENTAnyl 2MCG/ML-ROPIV 0.2% 100 ML BAG EPI SCH (00:30)
[2018-10-01] MEDS ORDERED: DIPHENHYDRAMINE 50 MG INJ IV PRN (00:30)
[2018-10-01] MEDS ORDERED: ONDANSETRON 4 MG INJ IV PRN (00:30)
[2018-10-01] MEDS ORDERED: NALOXONE (0.4 MG/ML) INJ IV PRN (00:30)
[2018-10-01] MEDS ORDERED: AMPICILLIN 1 GM/NS (PMX) 50 ML IVPB SCH (01:00)
--- NOTE | 2018-10-01 04:21 | LDN ---
Date/Time of Note Date/Time of Note DATE: 10/01/18 TIME: 04:19 Delivery Summary of a viable baby girl weighing 2910 grams or 6# 7 oz, 19" long, and with Apgars of 9/9. Weeks of Gestation 37w 4d Placenta Delivered: Spontaneously Meconium: none Episiotomy: No Perineal laceration: 0 Anesthesia type: Epidural Estimated blood loss: 150 Sponge & Needle done & correct: Yes All needle counts correct: Yes Any foreign bodies felt in the: No (vagina) Infant Delivery Information Sex Sex: female Apgars 1 Minute: 9 5 Minute: 9 Suctioning Nose & mouth suctioned at monica: Yes Delee suction performed: No Umbilical Cord Umbilical cord with: 3 Vessels Cord presentations: no nuchal cord Cord Blood was obtained: Yes Mother & Baby Disposition Disposition Mom & Baby to Maternity; Good: Yes Baby to NICU: No BRANDI THAKKAR MD Oct 01, 2018 04:21
[2018-10-01] MEDS ORDERED: OXYTOCIN 30 UNITS/LR 500 ML IV SCH (04:27)
[2018-10-01] MEDS ORDERED: LACTATED RINGER'S 1,000 ML IV* SCH (04:27)
--- NOTE | 2018-10-01 04:27 | HP ---
Date/Time of Note Date/Time of Note DATE: 10/01/18 TIME: 04:21 OB - History Hx of Present Free Text/Dictation 38 y.o. with an IUP at 37w 3d came in at 0900 on 09/30 with SROM and VE of 50%/1-2 cm/-3 station. Estimated Due Date: Oct 18, 2018 : 5 Para: 4 Care: Good Care Ultrasounds: Normal mid trimester US Obstetrical Complications: None Medical Complications: None Past Family/Social History * Past Medical, Surgical, Family and Obstetric Histories reviewed from chart. Blood Type: A+ Rubella: immune RPR/VDRL: Negative GBS Status: Negative HBsAG: Negative OB Admission Exam Vital Signs Vital Signs Vital Signs Date Temp Pulse Resp B/P (MAP) Pulse Ox O2 O2 Flow FiO2 Time Delivery Rate 09/30/18 98.0 74 17 130/79 09:31 (96) Physical Exam Heart: Rhythm Normal Lungs: Clear Abdomen: WNL Extremities: Normal Reflexes: Normal Cervical Dilatation: 1cm Effacement: 50% Station: -3 Membranes: Ruptured Amniotic Fluid: Clear Heart Rate: 130's Accelerations: Accelerations Present Decelerations: No Decelerations Varibility: Moderate Contractions on Admission: < 5 Minutes Apart Intensity: Moderate Last 72 hourBlood Glucose Bedside Glucose - 72 Hours Test 09/30/18 12:32 09/30/18 16:33 09/30/18 20:46 10/01/18 00:45 Bedside 99 76 76 81 Glucose mg/dL (70-220) mg/dL (70-220) mg/dL (70-220) mg/dL (70-220) Last 72 hours Lab Results CBC & BMP 09/30/18 10:25 OB Assessment/Plan Reason for admission: rupture of membranes Other Assessment: IUP AT 37W 3D ON ADMIT. Plan: Other (Pitocin augmentation.) BRANDI THAKKAR MD Oct 01, 2018 04:27
[2018-10-01] MEDS ORDERED: MISOPROSTOL 200 MCG TAB PR PRN (04:30)
[2018-10-01] MEDS ORDERED: HYDROCODONE/APAP (5/325) TAB PO PRN (04:30)
[2018-10-01] MEDS ORDERED: CARBOPROST 250 MCG INJ IM PRN (04:30)
[2018-10-01] MEDS ORDERED: METHYLERGONOVINE 0.2 MG INJ IM PRN (04:30)
[2018-10-01] MEDS ORDERED: LANOLIN HPA 1 PKT TOP PRN (04:30)
[2018-10-01] MEDS ORDERED: OXYTOCIN 30 UNITS/LR 500 ML IV PRN (04:30)
[2018-10-01] MEDS: IBUPROFEN 600 MG TAB PO SCH ×4 (06:13→23:33)
[2018-10-01 06:20] VITALS: BP 124/70; PULSE 70; RESP 18
[2018-10-01 08:10] VITALS: BP 114/71; PULSE 80; RESP 16
[2018-10-01 11:50] VITALS: BP 115/78; PULSE 74; RESP 14
[2018-10-01] MEDS: ACCU-CHEK XX SCH ×3 (12:00→20:05)
[2018-10-01 15:48] VITALS: BP 116/75; PULSE 66; RESP 17
--- NOTE | 2018-10-01 15:51 | PAC ---
Date/Time of Note Date/Time of Note DATE: 10/01/18 TIME: 15:51 Post-Anesthesia Notes Post-Anesthesia Note Last documented vital signs Vital Signs Date Temp Pulse Resp B/P (MAP) Pulse Ox O2 O2 Flow FiO2 Time Delivery Rate 10/01/18 97.9 74 14 115/78 Room Air 15:50 (90) Activity: WNL Respiratory function: WNL Cardiovascular function: WNL Mental status: Baseline Pain reasonably controlled: Yes Hydration appropriate: Yes Nausea/Vomiting absent: Yes MARY CROFT Oct 01, 2018 15:51
[2018-10-01 19:40] VITALS: BP 111/63; PULSE 72; RESP 18
[2018-10-01 23:48] VITALS: BP 100/66; PULSE 70; RESP 17
[2018-10-02 03:41] VITALS: BP 104/67; PULSE 69
[2018-10-02] MEDS: IBUPROFEN 600 MG TAB PO SCH ×4 (05:28→23:36)
[2018-10-02] MEDS: ACCU-CHEK XX SCH ×4 (07:30→20:05)
[2018-10-02 08:30] VITALS: BP 113/71; PULSE 65; RESP 18
[2018-10-02 16:13] VITALS: BP 121/74; PULSE 75; RESP 18
[2018-10-02 19:35] VITALS: BP 110/73; PULSE 85; RESP 18
--- NOTE | 2018-10-03 01:04 | PN ---
Date/Time of Note Date/Time of Note DATE: 10/03/18 TIME: 01:02 OB Subjective Subjective Subjective Entry note. Patient seen on 10/02/2018 PPD# 1 Patient is doing well. She denies nausea, vomiting, shortness of breath, chest pain, headache. She has been ambulating without difficulty, tolerating regular diet. Pain is well controlled on current medications OB Objective Objective Objective Vital Signs Date Temp Pulse Resp B/P (MAP) Pulse Ox O2 O2 Flow FiO2 Time Delivery Rate 10/02/18 98.1 85 18 110/73 Room Air 19:35 (85) General: AAO X 3, comfortable, NAD, appropriate mood and affect. ABD: +BS. Soft, non-tender. Uterus 2 cm below umbilicus Flank: No CVA tenderness (B/L) LE: Mild edema. No clubbing, cyanosis, thigh or calf tenderness (B/L). Homans 'sign is negative OB Assessment/Plan Other plan: 38 years old s/p normal vaginal delivery. PPD#1 - AF, VSS - Baby is doing well, at bed side. She is bonding well - Contraception methods with R/B/A/FR discussed - Continue care - Discharge home tomorrow - Rx and instruction given - Follow up in 2 and 6 weeks at clinic KEE RODRIGUEZ Oct 03, 2018 01:04
--- NOTE | 2018-10-03 01:05 | DS ---
Date/Time of Note Date/Time of Note DATE: 10/03/18 TIME: 01:04 Obstetrical Discharge Record Final Diagnosis Final Diagnosis: Term delivered Other Final Diagnosis 38 years old s/p normal vaginal delivery. PPD#2. course was unremarkable. She is ambulating and tolerating regular diet. She is voiding without difficulty pain. Pain is controlled on current medication. She desire for tubal ligation however there was no or availability. At this time the patient would like to have bilateral tubal ligation and back 6 weeks after delivery. - AF, VSS - Baby is doing well, at bed side. She is bonding well - Contraception methods with R/B/A/FR discussed - Continue care - Discharge home - Rx and instruction given - Follow up in 2 and 6 weeks at clinic Vaginal Delivery Obstetrical Delivery: Spontaneous Condition on Discharge Physical Assessment Voiding: Yes Bowel Movement: Yes Breast: Soft, non-tender Fundus: Firm Calf Tenderness: No Patient Condition: Stable KEE RODRIGUEZ Oct 03, 2018 01:05
[2018-10-03 04:23] VITALS: BP 109/72; PULSE 62; RESP 17
[2018-10-03] MEDS: IBUPROFEN 600 MG TAB PO SCH ×2 (05:31→11:48)
[2018-10-03 08:00] VITALS: BP 129/76; PULSE 76; RESP 20
[2018-10-03] MEDS ORDERED: DIPHTH/TET/ACEL PERTUSS (ADULT) 0.5 ML VIAL IM* ONE (09:00)
[2018-10-03] MEDS: ACCU-CHEK XX SCH (11:47)
== END 2018-10-03 12:14 | disposition home or self-care (01) | DRG 807 ==
LOC: OBT 09:16 → L-D 09:17 → OBT 09:45 → PP1 10-01 06:00
PROVIDERS: ADMIT Obstetrics & Gynecology; ATTEND Obstetrics & Gynecology
PROC: 10E0XZZ Delivery of Products of Conception, External Approach (ICD-10-PCS; principal; 2018-09-30)
DX: O80 Encounter for full-term uncomplicated delivery (principal); Z37.0 Single live birth; Z3A.37 37 weeks gestation of pregnancy
CPT/HCPCS: 62319; 82947; 82962; 85025; 85610; 85730; 86592; 86850; 86900; 86901; 87340; G0463; J0290; J2590; J3010; J7120